=== PATIENT | male | born 1965 | race Caucasian/White ===

== ENCOUNTER 2017-11-24 19:52 | Emergency (ER) | payer SELFPAY ==
[~2017-11-24] VITALS: Ht 170.2 cm; Wt 80.0 kg
[2017-11-24 20:32] LABS: GLUCOSE,POINT OF CARE 385 MG/DL (70-110)
[2017-11-24] MEDS ORDERED: KETOROLAC TROMETHAMINE 60 MG/2 ML VIAL IM ONE (21:15)
[2017-11-24 22:36] VITALS: BP 144/77
== END 2017-11-24 22:42 | disposition home or self-care (01) ==
LOC: EMS 19:53
DX: S90.512A Abrasion, left ankle, initial encounter (principal); M25.462 Effusion, left knee; E11.9 Type 2 diabetes mellitus without complications; E78.00 Pure hypercholesterolemia, unspecified; V03.90XA Pedestrian on foot injured in collision with car, pick-up truck or van, unspecified whether traffic or nontraffic accident, initial encounter; Y93.89 Activity, other specified; Y92.89 Other specified places as the place of occurrence of the external cause; Y99.8 Other external cause status
CPT/HCPCS: 29530; 73562; 73610; 82962; 96372; 99284; J1885